=== PATIENT | female | born 1990 ===

== ENCOUNTER 2020-09-24 08:00 | Outpatient (CLI) | payer OTHER ==
[2020-09-24 19:19] LABS: BILIRUBIN,URINE NEGATIVE (NEGATIVE); GLUCOSE, URINE (UA) NEGATIVE (NEGATIVE); KETONES,URINE (UA) NEGATIVE (NEGATIVE); LEUKOCYTE ESTERASE, URINE NEGATIVE (NEGATIVE); NITRITE,URINE NEGATIVE (NEGATIVE); OCCULT BLOOD,URINE LARGE (NEGATIVE); PROTEIN,URINE NEGATIVE (NEGATIVE); UROBILINOGEN,URINE 0.2 (NORMAL) E.U./dL (NORMAL)
[2020-09-24 19:20] LABS: CLARITY,URINE CLEAR (CLEAR)
[2020-09-24 19:39] LABS: BACTERIA,URINE Rare /HPF (None Seen); SQUAMOUS EPITHELIAL CELL,UR FEW Squamous (<= Few)
== END 2020-09-24 23:59 | disposition home or self-care (01) ==
LOC: LAB.S 08:00
PROVIDERS: ATTEND Emergency Medicine
DX: N39.0 Urinary tract infection, site not specified (principal)
CPT/HCPCS: 81001; 87086

== ENCOUNTER 2021-02-07 13:10 | Outpatient (CLI) | payer OTHER ==
[2021-02-07 20:25] LABS: ALBUMIN/GLOBULIN RATIO 1.1 (1.0-2.2); ALKALINE PHOSPHATASE 52 IU/L (42-121); ALT ALANINE AMINOTRANSFERASE 22 IU/L (10-60); AST ASPARTATE AMINOTRANSFERASE 24 IU/L (10-42); BILIRUBIN,TOTAL 0.6 mg/dL (0.2-1.0); BUN - BLOOD UREA NITROGEN 15 mg/dL (6-20); CALCIUM 9.3 mg/dL (8.5-10.3); CARBON DIOXIDE - CO2 25 mmol/L (21-32); CHLORIDE 104 mmol/L (101-111); CHOLESTEROL 154 mg/dL; CREATININE 0.8 mg/dL (0.4-1.0); GFR - MDRD 84 (>89); GLUCOSE 108 mg/dL (70-100); HDL CHOLESTEROL 51 mg/dL; LDL CHOLESTEROL,CALCULATED 70 mg/dL; LDL/HDL RATIO 1.4 (<4.4); POTASSIUM 4.1 mmol/L (3.5-5.0); SODIUM 137 mmol/L (135-145); TOTAL PROTEIN 7.7 g/dL (6.7-8.2); TRIGLYCERIDES 164 mg/dL; VLDL CHOLESTEROL 33 mg/dL
[2021-02-09 12:41] LABS: HEPATITIS C ANTIBODY NON-REACTIVE (NON-REACTIVE)
[2021-02-09 14:27] LABS: HIV AG/AB 4TH GEN NON-REACTIVE (NON-REACTIVE)
== END 2021-02-07 13:11 | disposition home or self-care (01) ==
LOC: LAB.S 13:10
PROVIDERS: ATTEND Nurse Practitioner Family
DX: Z11.59 Encounter for screening for other viral diseases (principal); Z13.220 Encounter for screening for lipoid disorders; Z76.89 Persons encountering health services in other specified circumstances; Z11.4 Encounter for screening for human immunodeficiency virus [HIV]; Z13.1 Encounter for screening for diabetes mellitus
CPT/HCPCS: 36415; 80053; 80061; 81599; 83721; 86735; 86762; 86765; 86787; 86803; 87389

== ENCOUNTER 2021-02-21 07:06 | Outpatient (CLI) | payer OTHER ==
[2021-02-21 14:56] LABS: BILIRUBIN,URINE NEGATIVE (NEGATIVE); GLUCOSE, URINE (UA) NEGATIVE (NEGATIVE); KETONES,URINE (UA) NEGATIVE (NEGATIVE); LEUKOCYTE ESTERASE, URINE NEGATIVE (NEGATIVE); NITRITE,URINE NEGATIVE (NEGATIVE); OCCULT BLOOD,URINE NEGATIVE (NEGATIVE); PROTEIN,URINE NEGATIVE (NEGATIVE); UROBILINOGEN,URINE 0.2 (NORMAL) E.U./dL (NORMAL)
[2021-02-21 15:03] LABS: CLARITY,URINE CLEAR (CLEAR)
[2021-02-21 15:06] LABS: BACTERIA,URINE Many /HPF (None Seen); RBC,URINE 0-5 /HPF (0-5); SQUAMOUS EPITHELIAL CELL,UR FEW Squamous (<= Few); WBC,URINE 0-3 /HPF (0-5)
[2021-02-21 15:10] LABS: CALCIUM 9.2 mg/dL (8.5-10.3); POTASSIUM 3.7 mmol/L (3.5-5.0)
== END 2021-02-21 07:07 | disposition home or self-care (01) ==
LOC: LAB.S 07:06
PROVIDERS: ATTEND Nurse Practitioner Family
DX: R94.4 Abnormal results of kidney function studies (principal)
CPT/HCPCS: 36415; 80048; 81001; 87086

== ENCOUNTER 2021-03-16 12:49 | Outpatient (CLI) | payer OTHER ==
[2021-03-16 17:58] LABS: CALCIUM 9.4 mg/dL (8.5-10.3); CREATININE 0.9 mg/dL (0.4-1.0)
== END 2021-03-16 12:50 | disposition home or self-care (01) ==
LOC: LAB.S 12:49
PROVIDERS: ATTEND Nurse Practitioner Family
DX: R94.4 Abnormal results of kidney function studies (principal)
CPT/HCPCS: 36415; 80048; 87086

== ENCOUNTER 2021-09-10 16:46 | Outpatient (CLI) | payer OTHER ==
[2021-09-10 20:22] LABS: CALCIUM 8.8 mg/dL (8.5-10.3); CREATININE 0.9 mg/dL (0.4-1.0); POTASSIUM 3.6 mmol/L (3.5-5.0)
== END 2021-09-10 16:47 | disposition home or self-care (01) ==
LOC: LAB.S 16:46
PROVIDERS: ATTEND Nurse Practitioner Family
DX: R94.4 Abnormal results of kidney function studies (principal)
CPT/HCPCS: 36415; 80048

== ENCOUNTER 2021-11-01 07:07 | Outpatient (CLI) | payer OTHER ==
[2021-11-01 14:51] LABS: BILIRUBIN,URINE NEGATIVE (NEGATIVE); GLUCOSE, URINE (UA) NEGATIVE (NEGATIVE); KETONES,URINE (UA) NEGATIVE (NEGATIVE); LEUKOCYTE ESTERASE, URINE NEGATIVE (NEGATIVE); NITRITE,URINE NEGATIVE (NEGATIVE); OCCULT BLOOD,URINE NEGATIVE (NEGATIVE); PH,URINE 5.5 PH (5.0-7.5); PROTEIN,URINE NEGATIVE (NEGATIVE); UROBILINOGEN,URINE 0.2 (NORMAL) E.U./dL (NORMAL)
[2021-11-01 15:05] LABS: CLARITY,URINE CLOUDY (CLEAR)
[2021-11-01 15:15] LABS: AMORPHOUS SEDIMENT,UR Marked /LPF; BACTERIA,URINE Few /HPF (None Seen); RBC,URINE 0-5 /HPF (0-5); SQUAMOUS EPITHELIAL CELL,UR FEW Squamous (<= Few); WBC,URINE 0-3 /HPF (0-5)
[2021-11-01 15:38] LABS: ALBUMIN 3.6 g/dL (3.2-5.5); ALBUMIN/GLOBULIN RATIO 1.1 (1.0-2.2); BILIRUBIN,TOTAL 0.6 mg/dL (0.2-1.0); CALCIUM 9.1 mg/dL (8.5-10.3); CREATININE 0.9 mg/dL (0.4-1.0); TOTAL PROTEIN 6.8 g/dL (6.7-8.2)
== END 2021-11-01 07:08 | disposition home or self-care (01) ==
LOC: LAB.S 07:07
PROVIDERS: ATTEND Internal Medicine Nephrology
DX: N17.9 Acute kidney failure, unspecified (principal)
CPT/HCPCS: 36415; 80053; 81001; 81003; 81599; 82610

== ENCOUNTER 2022-03-20 08:00 | Outpatient (CLI) | payer OTHER | END 2022-03-20 23:59 | disposition home or self-care (01) | LOC: LAB 08:00 | PROVIDERS: ATTEND Physician Assistant | DX: R30.0 Dysuria (principal) | CPT/HCPCS: 87086; 87181 ==

== ENCOUNTER 2022-07-30 09:55 | Outpatient (CLI) | payer OTHER ==
--- NOTE | 2022-07-30 12:42 | Ultrasound Report ---
LIMITED ULTRASOUND OF LEFT BREAST: 07/30/2022 CLINICAL: Palpable left breast lump / hardness... cyclical. Comparison is made to exam dated: 07/30/2022 mammogram - [facility]. Real-time ultrasound of the left breast 2 o'clock, and retroareolar regions was performed. Hensley sca le images of the real-time examination were reviewed. No abnormality which corresponds with the palpable abnormality is seen. IMPRESSION: NEGATIVE There is no sonographic evidence of malignancy. There is no abnormality seen in the left breast to correspond with the palpable abnormality at 2 o'cl ock, however, clinical followup is recommended. Return to annual mammogram screening schedule is recommended. This exam was interpreted at Station ID: [id number]. Electronically Signed By: Dhruv Elias M.D. acr/:07/30/2022 10:45:53 Ultrasound BI-RADS: 1 Negative BI-RADS CATEGORY: (1) - 1 RECOMMENDATION: (ANNUAL) - Recommend routine annual screening mammography. [id number] return to screening LATERALITY: (B)
--- NOTE | 2022-07-30 12:42 | Mammography Report ---
BILATERAL DIGITAL DIAGNOSTIC MAMMOGRAM 3D/2D: 07/30/2022 CLINICAL: Baseline exam. Palpable left breast lump. No prior exams were available for comparison. Both breasts are extremely dense, which lowers the sensitivity of mammography (category d />75% gland ular tissue). No significant masses, calcifications, or other findings are seen in either breast. No abnormality which corresponds with the palpable abnormality is seen. IMPRESSION: INCOMPLETE: NEEDS ADDITIONAL IMAGING EVALUATION There is no abnormality seen in the left breast to correspond with the palpable abnormality at 2 o'cl ock, however, ultrasound is recommended. US will be performed and dictated separately. Based on Tyrer-Cuzick model (a risk assessment model), the patient's lifetime risk is 22.0% and her 1 0 year risk is 1.3%. If a patient has an elevated risk, a more comprehensive evaluation should be con sidered and/or a referral to a genetic counselor. The [place] [employer], [employer], and NCCN Guidelines advise the consideration of Breast MRI as an adjunct to screening mammog melonie in patients whose "Lifetime risk to develop breast cancer" is 20% or higher. This exam was interpreted at Station ID: [id number]. NOTE: For mammograms, a report in lay terms will be sent to the patient. Approximately 15% of breast malignancies will not be visualized mammographically. In the management of a palpable breast mass, a negative mammogram must not discourage biopsy of a clinically suspicious lesion. Electronically Signed By: Dhruv Elias M.D. acr/:07/30/2022 10:46:38 ACR BI-RADS Category 0: Incomplete 3340F PARENCHYMAL PATTERN: (VD) - The breast(s) demonstrate(s) extremely dense parenchyma, limiting the sen sitivity of mammography. BI-RADS CATEGORY: (0) - 0 Ultrasound [id number] Immediate follow-up LATERALITY: (L)
== END 2022-07-30 09:56 | disposition home or self-care (01) ==
LOC: DI 09:55
PROVIDERS: ATTEND Nurse Practitioner Family
DX: N63.21 Unspecified lump in the left breast, upper outer quadrant (principal)

== ENCOUNTER 2023-12-04 08:00 | Outpatient (CLI) | payer OTHER ==
[2023-12-04 17:45] LABS: BILIRUBIN,URINE NEGATIVE (NEGATIVE); GLUCOSE, URINE (UA) NEGATIVE (NEGATIVE); KETONES,URINE (UA) NEGATIVE (NEGATIVE); LEUKOCYTE ESTERASE, URINE NEGATIVE (NEGATIVE); NITRITE,URINE NEGATIVE (NEGATIVE); OCCULT BLOOD,URINE NEGATIVE (NEGATIVE); PROTEIN,URINE NEGATIVE (NEGATIVE); UROBILINOGEN,URINE 0.2 (NORMAL) E.U./dL (NORMAL)
[2023-12-04 17:49] LABS: CLARITY,URINE CLEAR (CLEAR)
[2023-12-04 18:09] LABS: WBC,URINE 0-3 /HPF (0-5)
[2023-12-04 18:10] LABS: BACTERIA,URINE None Seen /HPF (None Seen); RBC,URINE None Seen /HPF (0-5); SQUAMOUS EPITHELIAL CELL,UR RARE Squamous (<= Few)
== END 2023-12-04 23:59 | disposition home or self-care (01) ==
LOC: LAB.WC 08:00
PROVIDERS: ATTEND Obstetrics & Gynecology
DX: Z34.80 Encounter for supervision of other normal pregnancy, unspecified trimester (principal)
CPT/HCPCS: 81001; 87086

== ENCOUNTER 2023-12-13 15:49 | Outpatient (CLI) | payer OTHER ==
--- NOTE | 2023-12-13 17:15 | Ultrasound Report ---
PROCEDURE: OB 1st Trimester w/TV INDICATIONS: POSITIVE TEST OUTSIDE/PRIOR DATING DATA: Last menstrual period (LMP): 10/10/2023. LMP-based estimated date of delivery (ROMA): 07/16/2024. First dating scan (date and location): 12/13/2023, [place]. Estimated date of delivery (ROMA) from first dating scan: 07/17/2024. TECHNIQUE: Real-time scanning was performed of the fetus and maternal pelvic organs, with image documentation. Endovaginal scanning was also performed to better visualize the fetus and maternal ovaries. COMPARISON: None. FINDINGS: Intrauterine gestational sac present. Embryo: Single live intrauterine gestation which measures 2.77 cm for a gestational age of 9 weeks, 0 days. Heart rate: 173 bpm. Other: No perigestational fluid collection. Measurement variability in dating: +/- 4 weeks by LMP, +/- 7 days by mean sac diameter (use before 6 weeks gestation if crown-rump length not able to be measured), +/- 5 days by crown-rump length (6-12 weeks gestation). Maternal organs: Ovaries appear within normal limits. There is a left corpus luteal cyst which measu res 2.0 cm in diameter. IMPRESSION: Single live intrauterine gestation with a gestational age of 9 weeks, 0 days by crown-rump length. Reviewed by: Anjali Celis MD on 12/13/2023 5:13 PM PDT Approved by: Anjali Celis MD on 12/13/2023 5:13 PM PDT Station ID: [id number]
== END 2023-12-13 15:50 | disposition home or self-care (01) ==
LOC: DI 15:49
PROVIDERS: ATTEND Obstetrics & Gynecology
DX: Z34.81 Encounter for supervision of other normal pregnancy, first trimester (principal)

== ENCOUNTER 2023-12-30 11:34 | Outpatient (CLI) | payer OTHER ==
[2023-12-30 11:56] LABS: BASOPHILS # (AUTO) 0.1 10^3/uL (0.0-0.1); BASOPHILS % (AUTO) 0.6 %; EOSINOPHILS # (AUTO) 0.1 10^3/uL (0.0-0.7); EOSINOPHILS % (AUTO) 1.6 %; HCT - HEMATOCRIT 42.2 % (37.0-47.0); HGB - HEMOGLOBIN 14.5 g/dL (12.0-16.0); LYMPHOCYTES # (AUTO) 2.2 10^3/uL (1.5-3.5); LYMPHOCYTES % (AUTO) 26.1 %; MEAN CORPUSCULAR HEMOGLOBIN 31.3 pg (27.0-31.0); MEAN CORPUSCULAR HGB CONC 34.4 g/dL (32.0-36.0); MEAN CORPUSCULAR VOLUME 90.9 fL (81.0-99.0); MEAN PLATELET VOLUME 9.2 fL (7.9-10.8); MONOCYTES # (AUTO) 0.5 10^3/uL (0.0-1.0); MONOCYTES % (AUTO) 5.5 %; NEUTROPHILS # (AUTO) 5.5 10^3/uL (1.5-6.6); PLT - PLATELET COUNT 248 10^3/uL (130-450); RED BLOOD COUNT 4.64 10^6/uL (4.20-5.40); RED CELL DISTRIBUTION WIDTH 12.6 % (12.0-15.0); WHITE BLOOD COUNT 8.4 x10^3/uL (4.8-10.8)
[2023-12-30 13:16] LABS: ESTIMATED AVERAGE GLUCOSE 94 mg/dL (70-100); HEMOGLOBIN A1c% 4.9 % (4.27-6.07)
[2023-12-31 00:40] LABS: CHLAMYDIA TRACHOMATIS DNA NEGATIVE (NEGATIVE); NEISSERIA GONORRHOEAE DNA NEGATIVE (NEGATIVE); TRICHOMONAS VAGINALIS DNA NEGATIVE (NEGATIVE)
[2023-12-31 03:10] LABS: HBsAG SCREEN Negative (Negative)
[2023-12-31 08:10] LABS: VARICELLA-ZOSTER AB IGG 1457 index (Immune >165)
[2023-12-31 13:11] LABS: RPR Non Reactive (Non Reactive)
[2024-01-01 01:08] LABS: HIV SCREEN 4TH GENERATION Non Reactive (Non Reactive)
== END 2023-12-30 11:35 | disposition home or self-care (01) ==
LOC: LAB 11:34
PROVIDERS: ATTEND Obstetrics & Gynecology
DX: Z34.80 Encounter for supervision of other normal pregnancy, unspecified trimester (principal); Z36.89 Encounter for other specified antenatal screening
CPT/HCPCS: 36415; 83036; 85025; 86592; 86762; 86787; 86803; 86850; 86900; 86901; 87340; 87389; 87491; 87591; 87661

== ENCOUNTER 2024-01-29 10:28 | Outpatient (CLI) | payer OTHER ==
[2024-02-01 13:10] LABS: AFP VALUE 26.7 ng/mL (.); GEST. AGE ON COLLECTION DATE 15.9 weeks (.); INSULIN DEP DIABETES No (.); MATERNAL AGE AT EDD 34.4 yr (.); MULTIPLE GESTATION No (.); OPEN SPINA BIFIDA RISK 1 IN 10000 (.); RACE Other (.); RESULTS Report (.); TEST RESULTS *Screen Negative* (.); WEIGHT 148 lbs (.)
== END 2024-01-29 10:29 | disposition home or self-care (01) ==
LOC: LAB 10:28
PROVIDERS: ATTEND Obstetrics & Gynecology
DX: O34.211 Maternal care for low transverse scar from previous cesarean delivery (principal); Z82.79 Family history of other congenital malformations, deformations and chromosomal abnormalities
CPT/HCPCS: 36415; 82105

== ENCOUNTER 2024-03-08 18:29 | Outpatient (CLI) | payer OTHER ==
--- NOTE | 2024-03-09 10:39 | Ultrasound Report ---
PROCEDURE: OB Anatomy Scan INDICATIONS: SUPERVISION OF OUTSIDE/PRIOR DATING DATA: Last menstrual period (LMP): 10/10/2023. LMP-based estimated date of delivery (ROMA): 07/16/2024. First dating scan (date and location): 12/13/2023. Estimated date of delivery (ROMA) from first dating scan: 07/17/2024. The below data below was generated using the working ROMA of 07/16/2024 TECHNIQUE: Real-time scanning was performed of the fetus, with image documentation and biometric measurements. Endovaginal scanning: Not performed. COMPARISON: 12/13/2023 FINDINGS: General: A single living intrauterine gestation is present. Presentation: Variable Placenta: Placental position is anterior, without previa. Amniotic fluid index: 14.4 cm, at 50.1% and is within normal limits for gestational age. heart rate: 145 beats per minute. Maternal cervical canal: Closed and measures 5.73 cm long; normal length is 2.5 cm or more. biometrics: Biparietal diameter: 4.9 cm, 20 weeks, 6 days. 23.5% Head circumference: 19.63 cm, 21 weeks, 6 days, 57.5%. Abdominal circumference: 16.28 cm, 21 weeks, 2 days, 40.4%. Femur length: 3.46 cm, 20 weeks, 6 days, 23.1%. Estimated gestational age from initial scan: 21 weeks, 3 days Composite gestational age from present scan: 21 weeks, 2 days Estimated weight and percentile: 406.1 g, 32.3% Measurement variability in biometric dating: +/- 10 days from 12-20 weeks gestation, +/- 2 weeks from 20-30 weeks gestation, +/- 3 weeks at 30 weeks gestation or later. Anatomic survey: Neuro: Ventricles are normal at less than 10 mm. Cisterna magna is normal at 3-11 mm. Cerebellum i s normal in size and morphology. Nuchal skin fold: Normal at less than 6 mm between 14 and 20 weeks gestational age. Face: Nose and lips, facial profile are normal. Spine: Not well seen. Heart: 4-chambered heart is present, with normal ventricular outflow tracts. Diaphragm: Diaphragm is intact. Stomach: Left-sided stomach is present. Kidneys: No hydronephrosis. Normal is less than 5 mm in 2nd trimester, less than 7 mm in 3rd trimester. Cord: Not well seen. Bladder: Normal in size. Extremities: All 4 extremities are visualized. IMPRESSION: 1. Single live intrauterine gestation with fetus in variable presentation. heart rate is 1 45 b pm. Normal SULTANA at 14.4 cm. Normal growth with estimated weight at 32.3%. 2. spine and cord insertions are not well seen due to position. Rest of the anatomi c survey is normal. Reviewed by: Asif Zambrano MD on 03/09/2024 10:37 AM PDT Approved by: Asif Zambrano MD on 03/09/2024 10:37 AM PDT Station ID: [id number]
== END 2024-03-08 18:30 | disposition home or self-care (01) ==
LOC: DI 18:29
PROVIDERS: ATTEND Obstetrics & Gynecology
DX: O34.211 Maternal care for low transverse scar from previous cesarean delivery (principal); Z82.79 Family history of other congenital malformations, deformations and chromosomal abnormalities; Z3A.21 21 weeks gestation of pregnancy

== ENCOUNTER 2024-07-12 06:03 | Inpatient (IN) ==
[2024-07-12] MEDS ORDERED: CITRIC ACID/SODIUM CITRATE 15 ML UDC PO ONE (06:11)
[2024-07-12] MEDS ORDERED: miSOPROStoL 200 MCG TABLET ONE (07:06)
[2024-07-12] MEDS ORDERED: METHYLERGONOVINE 0.2 MG/ML VIAL ONE (07:07)
[2024-07-12] MEDS ORDERED: CARBOPROST TROMETHAMINE 250 MCG/ML VIAL IM ONE (07:07)
[2024-07-12] MEDS ORDERED: fentaNYL 100 MCG/2 ML VIAL ONE (07:12)
[2024-07-12] MEDS ORDERED: PHENYLEPHRINE HCL 0.5 MG/5 ML AMPULE ONE (07:14)
[2024-07-12] MEDS ORDERED: ONDANSETRON 4 MG/2 ML VIAL ONE (07:14)
--- NOTE | 2024-07-12 07:40 | ANESTHESIA PROCEDURE NOTE ---
Pre-Anesthesia VS, & Labs Diagnosis Surgical Diagnosis:: hx of previous C section Procedure Procedure: Repeat C Section Vitals Vital Signs: Temp Pulse Resp BP Pulse Ox 36.8 C 83 16 123/87 99 07/12/24 06:11 07/12/24 06:11 07/12/24 06:11 07/12/24 06:11 07/12/24 06:11 Height (in): 5 ft 4 in NPO NPO: >8 hours Is Patient ?: Yes Estimated Due Date:: 07/12/24 Lab Results Current Lab Results: Laboratory Tests 07/12/24 07:24: POC Whole Bld Glucose 75 Lab results reviewed: Yes Meds/Allgy Home Medications Ambulatory Orders Medication Instructions Recorded Confirmed vits no.126-ferrous fum tab PO .DAILY 04/11/24 07/07/24 28 mg iron-folic acid 800 mcg tablet (Classic ) blood-glucose meter (True Metrix See Rx Instructions .Route 04/28/24 07/07/24 Air Glucose Meter) .COMPLEX #1 ea lancets 33 gauge (Ultra Thin See Rx Instructions .Route 04/28/24 07/07/24 Lancets) .COMPLEX #100 ea albuterol sulfate 90 mcg/actuation 2 puff inhalation Q6H PRN 05/20/24 07/07/24 aerosol inhaler (Ventolin HFA) shortness of breath or wheezing #6.7 grams blood sugar diagnostic (True See Rx Instructions .Route 06/21/24 07/07/24 Metrix Glucose Test Strip) .COMPLEX #100 strips Allergies Allergies Allergy/AdvReac Type Severity Reaction Status Date / Time adhesive tape Allergy Intermediate Rash Verified 06/17/24 08:48 PFSH Surgical History Surgical History H/O foot surgery Previous section Needle removed from foot-2008 Family History Family History Father High blood pressure Sister Breast cancer Maternal grandmother Breast cancer Paternal grandmother Breast cancer Social History Social History Smoking Status: Never smoker Second hand tobacco smoke exposure: No Do you dip or chew tobacco?: No Do you vape?: No Patient requests smoking cessation consult: No Initiate information on smoking cessation: No Living arrangement: At home Living Condition: With spouse/s.o. 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 Patient has POLST: No Anesthesia Exam (Expanded) Exam General: Alert and Oriented x3 Dental: WNL Mouth Openin Fingerbreadth Neck Mobility: Normal Mallampati classification: II Thyromental Distance: 4-6 cm Respiratory: No respiratory distress Plan Problem List (1) Unspecified asthma, uncomplicated: (2) Supervision of normal : (3) Gestational diabetes: (4) Asthma: (5) Anxiety: (6) H/O foot surgery: (7) Previous section: Plan Anesthesia Type: Spinal and Transverse Abdominis Plane (TAP) Block Consent for Procedure(s) Verified and Reviewed: Yes Code Status: Attempt Resuscitation ASA Classification ASA classification: 2-Mild systemic disease Is this case an emergency?: No
[2024-07-12] MEDS ORDERED: ePHEDrine 50 MG/ML VIAL IVP PRN (07:42)
[2024-07-12] MEDS ORDERED: ONDANSETRON 4 MG/2 ML VIAL IVP PRN (07:42)
[2024-07-12] MEDS ORDERED: fentaNYL 100 MCG/2 ML VIAL IVP PRN (07:42)
[2024-07-12] MEDS ORDERED: NALOXONE 0.4 MG/ML VIAL IVP PRN (07:42)
[2024-07-12] MEDS ORDERED: ATROPINE ABBOJECT 1 MG/10 ML SYRINGE IVP PRN (07:42)
[2024-07-12] MEDS ORDERED: HYDROmorphone 0.5 MG/0.5 ML SYRINGE IVP PRN (07:42)
[2024-07-12] MEDS ORDERED: METOCLOPRAMIDE 10 MG/2 ML VIAL IVP PRN (07:42)
[2024-07-12] MEDS ORDERED: MORPHINE 2 MG/ML CARPUJECT IVP PRN (07:42)
--- NOTE | 2024-07-12 07:47 | HISTORY & PHYSICAL EXAMINATION ---
Admit History Smoking Status: Never smoker Other Maternal History Other Maternal History: HPI: Patient is a 34-year-old -0-0-1 at 39 weeks 3 days gestation presented for repeat low-transverse section secondary to previous low-transverse section. She has good movement. Denies loss of fluid. No ERNST/BV or RUQP. No vaginal bleeding. Denies nausea and vomiting. Denies urinary urgency or dysuria. All other symptoms reviewed and were negative except per HPI. Course LMP: 10/10/2023 ROMA by LMP: 07/16/2024 US:12/13/23 @ 9+0 US ROMA 07/17/24 Final ROMA: 07/16/2024 c/w LMP Problems: - section 2019, failure to progress past 7 cm, intolerance. at [facility]. Daughter. Declined TOLAC. - A1DM - Elevated 1HR GTT (209), passed 3hr. Will check BG at home for next 2 weeks and bring to next visit. 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 her twin works as RN at [employer] and had a baby with anencephaly Pre- Weight: 147 BMI: 24.82 Blood type: A+ Antibody: Negative CBC: PLT 248 HCT 42.2 HGB 14.5 RUB: Immune VZV: Immune HBsAg: Negative HepC: NR RPR/AB-EIA: NR HIV: NR PAP:12/29 Negative; HPV Negative GC/CT:12/29 Negative HSV: denies Genetic testing: NIPT 12/29 Negative, AFP Negative Covid:vax x2, 03/25 Flu:NO, 03/25 FAS:missing some views, f/u ordered- still not complete- MFM referral to complete 04/12 completed and Normal Placenta: anterior without previa Cord: not well seen SULTANA: WNL EFW: 406.1g, 32.3%ile 50gm OGCT:209 3HR GTT:84 123, 120, 96 pass TDAP:04/22 Breast Pump:04/22 3rd trimester H/H 13.1/39.6 PLT 236 RSV: 06/03/24 mls GBS: 06/17- positive Contraception: OCPs HPI Current : Current EDU 07/12/24 Vital Signs Temperature 36.8 C 07/12/24 06:11 Pulse Rate 83 07/12/24 06:11 Respiratory Rate 16 07/12/24 06:11 Blood Pressure 123/87 07/12/24 06:11 O2 Saturation 99 07/12/24 06:11 NST Procedure NST Procedure: NST Procedure Start Date 07/12/24 Start Time 06:20 Stop Time 07:00 Vibroacoustic Stimulation Used No Patient States Movement Yes Meds/Allgy Home Medications Ambulatory Orders Medication Instructions Recorded Confirmed vits no.126-ferrous fum tab PO .DAILY 04/11/24 07/07/24 28 mg iron-folic acid 800 mcg tablet (Classic ) blood-glucose meter (True Metrix See Rx Instructions .Route 04/28/24 07/07/24 Air Glucose Meter) .COMPLEX #1 ea lancets 33 gauge (Ultra Thin See Rx Instructions .Route 04/28/24 07/07/24 Lancets) .COMPLEX #100 ea albuterol sulfate 90 mcg/actuation 2 puff inhalation Q6H PRN 05/20/24 07/07/24 aerosol inhaler (Ventolin HFA) shortness of breath or wheezing #6.7 grams blood sugar diagnostic (True See Rx Instructions .Route 06/21/24 07/07/24 Metrix Glucose Test Strip) .COMPLEX #100 strips Allergies Allergies Allergy/AdvReac Type Severity Reaction Status Date / Time adhesive tape Allergy Intermediate Rash Verified 06/17/24 08:48 PFSH Surgical History Surgical History H/O foot surgery Previous section Needle removed from foot-2008 Family History Family History Father High blood pressure Sister Breast cancer Maternal grandmother Breast cancer Paternal grandmother Breast cancer Social History Social History Smoking Status: Never smoker Second hand tobacco smoke exposure: No Do you dip or chew tobacco?: No Do you vape?: No Patient requests smoking cessation consult: No Initiate information on smoking cessation: No Living arrangement: At home Living Condition: With spouse/s.o. 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 Respiratory: Normal rate of respiration. No accessory muscle use, normal respiratory effort. Cardiovascular: Regular rate and rhythm Abdomen: Gravid, nontender, nondistended Extremities: Normal range of motion Neuro: Oriented x3. Normal movements Psych: Appropriate mood and affect. Normal judgment and insight FHT: 120 bpm baseline, moderate variability, accelerations present, no decelerations. [place]: Irregular Plan for Labor Plan For Labor I expect patient to be DC'd or transferred within 96 hours.: Yes Conclusion/Plan Problem List (1) Maternal care for low transverse scar from previous delivery: Plan: -No changes in history since her last visit. Desires to proceed with repeat low-transverse section. -2 g cefazolin for surgical preop prophylaxis. (2) 39 weeks gestation of : (3) Supervision of normal : Qualifiers: Normal : other normal Trimester: third trimester Qualified Code(s): Z34.83 - Encounter for supervision of other normal , third trimester (4) Gestational diabetes: Plan: Plan for 6-week evaluation (5) Unspecified asthma, uncomplicated: Qualifiers: Asthma severity: mild Asthma persistence: intermittent Qualified Code(s): J45.20 - Mild intermittent asthma, uncomplicated (6) Anxiety: Lab Results Lab results reviewed: Yes
[2024-07-12 07:58] LABS: BASOPHILS # (AUTO) 0.1 10^3/uL (0.0-0.1); BASOPHILS % (AUTO) 0.7 %; EOSINOPHILS # (AUTO) 0.1 10^3/uL (0.0-0.7); EOSINOPHILS % (AUTO) 1.2 %; HGB - HEMOGLOBIN 13.5 g/dL (12.0-16.0); LYMPHOCYTES # (AUTO) 2.1 10^3/uL (1.5-3.5); LYMPHOCYTES % (AUTO) 24.1 %; MEAN CORPUSCULAR HEMOGLOBIN 30.2 pg (27.0-31.0); MEAN CORPUSCULAR HGB CONC 33.8 g/dL (32.0-36.0); MEAN CORPUSCULAR VOLUME 89.5 fL (81.0-99.0); MEAN PLATELET VOLUME 10.7 fL (7.9-10.8); MONOCYTES # (AUTO) 0.7 10^3/uL (0.0-1.0); MONOCYTES % (AUTO) 8.3 %; NEUTROPHILS # (AUTO) 5.7 10^3/uL (1.5-6.6); NEUTROPHILS % (AUTO) 65.1 %; PLT - PLATELET COUNT 194 10^3/uL (130-450); RED BLOOD COUNT 4.47 10^6/uL (4.20-5.40); RED CELL DISTRIBUTION WIDTH 14.2 % (12.0-15.0); WHITE BLOOD COUNT 8.7 x10^3/uL (4.8-10.8)
[2024-07-12] MEDS: LACTATED RINGERS 1,000 ML IV SCH ×2 (08:00→10:02)
[2024-07-12] MEDS: ACETAMINOPHEN 500 MG TABLET PO ONE (08:16)
[2024-07-12] MEDS: ceFAZolin (2G) 2 GM in SODIUM CHLORIDE 0.9% MINIBAG 100 ML IV ONE (08:30)
[2024-07-12] MEDS ORDERED: ePHEDrine 50 MG/ML VIAL IVP ONE (08:39)
[2024-07-12] MEDS ORDERED: DEXAMETHASONE 4 MG/ML VIAL ONE (09:13)
[2024-07-12] MEDS ORDERED: KETOROLAC 30 MG/ML VIAL ONE (09:13)
[2024-07-12] MEDS ORDERED: SODIUM CHLORIDE 0.9% 10 ML VIAL IVP ONE ×2 (09:14→09:23)
[2024-07-12] MEDS ORDERED: ROPIVACAINE 0.5% PF 20 ML VIAL ONE ×2 (09:16→09:23)
[2024-07-12] MEDS ORDERED: oxyCODONE 5 MG TABLET PO PRN (09:42)
[2024-07-12] MEDS ORDERED: SIMETHICONE CHEW 80 MG TABLET PO PRN (09:42)
[2024-07-12] MEDS ORDERED: ONDANSETRON ODT 4 MG TABLET TL PRN (09:42)
[2024-07-12] MEDS ORDERED: OXYTOCIN/SODIUM CHLORIDE 500 ML IV PRN (09:42)
--- NOTE | 2024-07-12 09:46 | OPERATIVE REPORT ---
Operative Report General Admit Date: 07/12/24 Procedure Data: Operation Date: 07/12/24 08:30 Proposed Procedures p REPEAT Section(Not Applicable) - Magnus March MD Actual Procedures p REPEAT Section(Not Applicable) - Magnus March MD Anesthesia Type Spinal Case Staff Anesthesia Provider: Steph Chew Anesthesia Provider: Anh Hall Assisting Provider: Lucia Moore Case Times Procedure Start: 07/12/24 08:51 Procedure End: 07/12/24 09:34 Time out: 07/12/24 08:48 Pre-Op Diagnosis: Previous low-transverse section, 39 weeks gestation Post Op Diagnosis: Same, delivery of live rodriguez , status post repeat low-transverse Procedure Note Intake, IV Amount (ml): 900 Estimated Blood Loss (ml): 650 Output, Urine Amount (ml): 50 Pathology: None Findings: Normal appearing uterus, tubes, ovaries. Other Other Information/Narrative: After informed consent was obtained and questions were answered, patient was taken to the operating room. Prior to being taken to the OR, 2 grams of cefazolin IV was administered. The patient was taken to the operating room where regional anesthesia was found to be adequate. She was then prepared and draped in the usual sterile fashion in the dorsal supine position with a leftward tilt displacing the uterus. Brito was draining to gravity. SCDs were on bilateral lower extremities. Time out was taken. A pfannenstiel skin incision was then made with the scalpel and carried through to the underlying layer of fascia. The fascia was incised in the midline and the incision extended laterally with the Toribio scissors. The superior aspect of the facial incision was then grasped with the Joseph clamps, elevated and the underlying rectus muscles dissected off sharply. Attention was then turned to the inferior aspect of this incision which in a similar fashion was grasped, elevated with the Joseph clamps and the rectus muscle dissected off sharply. The rectus muscles were in the midline. The peritoneum identified, grasped with the pick-ups and entered sharply with the Metzenbaum scissors. The peritoneal incision was then extended superiorly and inferiorly with good visualization of the bladder. The bladder blade was inserted. The vesicouterine peritoneum was identified, grasped with the pick-ups, and entered sharply with Metzenbaum scissors. This incision was then extended laterally and the bladder flap created digitally. The bladder blade was reinserted. The lower uterine segment was identified and incised in a transverse fashion with the scalpel. The uterine incision was then extended bluntly laterally. Artificial rupture of membranes demonstrated clear fluid. The bladder blade was removed. The fetus was in a cephalic presentation. The infants head delivered atraumatically. The anterior shoulders were delivered followed by the posterior shoulders then the remainder of the body. The infants mouth and nose were bulb suctioned. The umbilical cord was clamped times two and cut. The was handed to the pediatric team. The placenta was removed with gentle traction. Oxytocin was added to the IV fluid and was allowed to run freely. The uterus was exteriorized and cleared of all clots and debris. The uterine incision was inspected and found to be without any extensions and was repaired with 0 Vicryl in a running, locked fashion. A second imbricating layer was performed. 1 additional [id number] stitch at the left apex was needed for hemostasis. Upon inspection, the repaired hysterotomy was found to be hemostatic. The uterus was firm and returned to the abdomen. The gutters were cleared of all clots and debris. The muscle layer was examined and found to be hemostatic. The fascia was reapproximated with 0 Vicryl in a running fashion. The skin was closed in a subcuticular fashion with 4-0 Monocryl. The patient tolerated the procedure well. Sponge, lap and needle counts were correct times three. The patient was taken to the recovery room in stable condition. I appreciate the assistance of JOSÉ MIGUEL Bautista during this procedure, and the assistance in retraction, visualization, dissection, and overall assistance during the case were instrumental to the patient's wellbeing. APGARs: 8/9 weight: Pending
[2024-07-12] MEDS ORDERED: LACTATED RINGERS 1,000 ML IV SCH (10:00)
--- NOTE | 2024-07-12 12:56 | ANESTHESIA POST OP EVALUATION ---
Anesthesia Post Eval Post Anesthesia Eval Vitals: Last Vital Signs Temp 36.4 C L 07/12/24 12:19 Pulse 76 07/12/24 12:19 Resp 19 07/12/24 12:19 BP 118/67 07/12/24 12:19 Pulse Ox 100 07/12/24 12:19 CV Function Including HR & BP: Stable Pain Control: Satisfactory Nausea & Vomiting: Negative Mental Status: Baseline Respiratory Status: Airway Patent Hydration Status: Satisfactory Anesthesia Complications: None
[2024-07-12] MEDS: KETOROLAC 30 MG/ML VIAL IVP SCH (15:29)
[2024-07-12] MEDS: ACETAMINOPHEN 500 MG TABLET PO SCH (16:51)
[2024-07-12 20:10] VITALS: TEMP 98.1
[2024-07-13] MEDS ORDERED: KETOROLAC 30 MG/ML VIAL ONE (04:07)
[2024-07-13 06:08] LABS: BASOPHILS # (AUTO) 0.1 10^3/uL (0.0-0.1); BASOPHILS % (AUTO) 0.3 %; EOSINOPHILS # (AUTO) 0.1 10^3/uL (0.0-0.7); EOSINOPHILS % (AUTO) 0.4 %; HCT - HEMATOCRIT 35.1 % (37.0-47.0); HGB - HEMOGLOBIN 11.7 g/dL (12.0-16.0); LYMPHOCYTES % (AUTO) 19.9 %; MEAN CORPUSCULAR HEMOGLOBIN 30.5 pg (27.0-31.0); MEAN CORPUSCULAR HGB CONC 33.3 g/dL (32.0-36.0); MEAN CORPUSCULAR VOLUME 91.6 fL (81.0-99.0); MEAN PLATELET VOLUME 10.1 fL (7.9-10.8); MONOCYTES # (AUTO) 1.1 10^3/uL (0.0-1.0); MONOCYTES % (AUTO) 6.9 %; PLT - PLATELET COUNT 179 10^3/uL (130-450); RED BLOOD COUNT 3.83 10^6/uL (4.20-5.40); RED CELL DISTRIBUTION WIDTH 14.1 % (12.0-15.0); WHITE BLOOD COUNT 15.3 x10^3/uL (4.8-10.8)
[2024-07-13 08:48] VITALS: O2SAT 98
[2024-07-13] MEDS ORDERED: IBUPROFEN 600 MG TABLET PO ONE (10:15)
[2024-07-13] MEDS: IBUPROFEN 600 MG TABLET PO SCH (10:17)
[2024-07-13] MEDS: DOCUSATE SODIUM 100 MG CAPSULE PO SCH (10:17)
--- NOTE | 2024-07-13 11:41 | Discharge Summary ---
"Discharge Summary Admit Date: 07/12/24 Discharge Date: 07/13/24 Discharging Provider: Magnus March Code Status: Attempt Resuscitation DIAGNOSES Admission Diagnoses: Previous low-transverse section 39 weeks gestation Gestational diabetes, controlled with diet and exercise Discharge Diagnoses with Status of Each Condition: Same Delivery of live rodriguez Status post repeat low-transverse section HPI History of Present Illness: Subjective Patient reports she is doing well. Lochia appropriate. Denies heavy bleeding. Ambulating. Pelvic and abdominal pain well-controlled. Tolerating oral intake. Diet: Regular. Voiding without difficulty. Passing flatus. Denies BM. Patient is bonding with baby in room Breast feeding going well. Denies feeling lightheaded, dizzy or excessively fatigued Objective General: Alert, oriented, no apparent distress. Cardiovascular: Regular rate. Regular rhythm. Lungs: No increased work of breathing. Abdomen: Uterus firm. Below umbilicus. No guarding or rebound. Extremities: No pain on palpation. No cords palpated. Distal pulses intact. Incision: Clean, dry, and intact. CONSULTS | PROCEDURES Consultations: Anesthesia HOSPITAL COURSE Hospital Course: Patient is admitted for planned repeat low-transverse section. Surgery was uncomplicated and mom and baby were both doing exceptionally well on day 1 and desired to go home. She was discharged in good condition with education. ALLERGIES Allergies Allergy/AdvReac Type Severity Reaction Status Date / Time adhesive tape Allergy Intermediate Rash Verified 06/17/24 08:48 MEDICATIONS Ambulatory Orders Medication Instructions Recorded Confirmed vits no.126-ferrous fum 1 tab PO DAILY 04/11/24 07/12/24 28 mg iron-folic acid 800 mcg tablet (Classic ) albuterol sulfate 90 mcg/actuation 2 puff inhalation Q6H PRN 05/20/24 07/12/24 aerosol inhaler (Ventolin HFA) shortness of breath or wheezing #6.7 grams acetaminophen 500 mg tablet 1,000 mg (2 x 500 mg) PO Q6HR #60 07/13/24 tabs docusate sodium 100 mg capsule 100 mg PO DAILY #60 caps 07/13/24 ibuprofen 600 mg tablet 600 mg PO Q6HR #60 tabs 07/13/24 oxycodone 5 mg tablet 5 mg PO Q4HR PRN Moderate Pain 07/13/24 (Level 4-6) #20 tabs LABS 07/13/24 06:00 FOLLOW UP Follow Up: With Magnus March MD in 1 week. TIME SPENT Time Spent in Discharge (Minutes): 20 Discharge Plan Discharge Patient Disposition: Home, Self Care Prescriptions: New oxycodone 5 mg Tablet 5 mg PO Q4HR PRN (Reason: Moderate Pain (Level 4-6)) Qty: 20 0RF acetaminophen 500 mg Tablet 1,000 mg PO Q6HR Qty: 60 0RF docusate sodium 100 mg Capsule 100 mg PO DAILY Qty: 60 0RF ibuprofen 600 mg Tablet 600 mg PO Q6HR Qty: 60 0RF Continued albuterol sulfate [Ventolin HFA] 90 mcg/actuation HFA aerosol inhaler 2 puff inhalation Q6H PRN (Reason: shortness of breath or wheezing) Qty: 6.7 2RF Classic 28 mg iron- 800 mcg tablet 1 tab PO DAILY Print Language: Cymraes Patient Instructions: Depression , C Section Dc Follow-up Care: Magnus March MD [Provider Admit Priv/Credential] -"
[2024-07-13 13:47] VITALS: BP 109/76
== END 2024-07-13 16:11 | disposition home or self-care (01) | DRG 788 ==
LOC: FBP 06:03
PROVIDERS: ADMIT Obstetrics & Gynecology; ATTEND Obstetrics & Gynecology
DX: O99.344 Other mental disorders complicating childbirth; Z37.0 Single live birth; O24.420 Gestational diabetes mellitus in childbirth, diet controlled; N85.8 Other specified noninflammatory disorders of uterus; O34.211 Maternal care for low transverse scar from previous cesarean delivery; Z3A.39 39 weeks gestation of pregnancy; F41.9 Anxiety disorder, unspecified; J45.20 Mild intermittent asthma, uncomplicated; O99.52 Diseases of the respiratory system complicating childbirth